=== PATIENT | female | born 1945 | race Two or more races ===

== ENCOUNTER 2021-11-24 10:54 | Outpatient (CLI) | payer MEDICARE ==
[~2021-11-24 10:54] MED LIST: ASPI-1155 PO; WARF3TAB PO
== END 2021-11-24 20:18 | disposition home or self-care (01) ==
LOC: SRD 10:54
PROVIDERS: ATTEND Family Medicine
DX: M47.812 Spondylosis without myelopathy or radiculopathy, cervical region (principal); M89.38 Hypertrophy of bone, other site; M46.02 Spinal enthesopathy, cervical region; M54.2 Cervicalgia
CPT/HCPCS: 72050-TC